=== PATIENT | female | born 1990 | race Caucasian/White ===

== ENCOUNTER 2016-11-18 18:14 | Emergency (ER) | payer OTHER ==
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
[2016-11-18 18:23] VITALS: BP 143/92; PULSE 110; TEMP 98.5; BMI 20.6
[2016-11-18] MEDS ORDERED: ACETAMINOPHEN 325 MG TABLET (FP) PO ONE (18:28)
[2016-11-18] MEDS ORDERED: DIPHTH,PERTUSS(ACELL),TET 0.5 ML DISP.SYRIN IM ONE (19:24)
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
== END 2016-11-18 21:26 | disposition home or self-care (01) ==
LOC: JERFT 18:14
DX: S01.112A Laceration without foreign body of left eyelid and periocular area, initial encounter (principal); S00.83XA Contusion of other part of head, initial encounter; Y00.XXXA Assault by blunt object, initial encounter; Y93.89 Activity, other specified; Y92.038 Other place in apartment as the place of occurrence of the external cause; Y07.9 Unspecified perpetrator of maltreatment and neglect
CPT/HCPCS: 84703; 90715; 99281-25

== ENCOUNTER 2018-08-01 09:31 | Emergency (ER) | payer OTHER ==
[2018-08-01 09:41] VITALS: BP 132/95; PULSE 104; TEMP 99.6; BMI 20.1
[2018-08-01] MEDS ORDERED: ALBUTEROL SO4 2.5/IPRATROPIUM 0.5 INH SOL 3 ML VIAL.NEB. NEB ONE ×2 (10:03→10:13)
[2018-08-01] MEDS ORDERED: LORATADINE 10 MG TABLET PO ONE (10:06)
--- NOTE | 2018-08-01 10:08 | PDOC ---
History of Present Illness - General Chief Complaint: Sore Throat Stated Complaint: COUGH/PAIN Time Seen by Provider: 08/01/18 10:02 History Source: Patient Exam Limitations: No Limitations (cough, wheezing, and sorethraot X 2 days) - History of Present Illness Associated Symptoms: reports: cough. denies: fever/chills, headaches, shortness of breath Past History - Past Medical History Allergies/Adverse Reactions: Allergies Allergy/AdvReac Type Severity Reaction Status Date / Time No Known Allergies Allergy Verified 08/01/18 09:41 Home Medications: Ambulatory Orders Albuterol Sulfate Inhaler - [Ventolin HFA Inhaler -] 2 inh PO Q6H #1 inh Benzonatate [Tessalon Pearls -] 100 mg PO TID #21 capsule 08/01/18 Ibuprofen 600 mg PO ACDIN 7 Days #21 tablet 08/01/18 COPD: No - Reproductive History (#): 0 Para: 0 Cervical CA: No Dysfunctional Uterine Bleeding: No Ectopic : No Endometrial CA: No Polycystic Ovaries: No Therapeutic (s) & number: No Tubal Ligation: No Spontaneous : 0 - Suicide/Smoking/Psychosocial Hx Smoking Status: No Smoking History: Current every day smoker Have you smoked in the past 12 months: No Number of Cigarettes Smoked Daily: 5 Information on smoking cessation initiated: No Hx Alcohol Use: No Drug/Substance Use Hx: No Substance Use Type: None Review of Systems - Review of Systems Constitutional: No: Chills, Fever HEENTM: Yes: Ear Pain, Throat Pain. No: Ear Discharge, Throat Swelling, Mouth Pain Respiratory: Yes: Cough, Productive cough. No: Shortness of Breath, SOB with Exertion, Stridor, Wheezing Cardiac (ROS): No: Chest Pain, Lightheadedness, Chest Tightness Neurological: No: Headache, Numbness, Paresthesia *Physical Exam - Vital Signs Last Vital Signs Temp Pulse Resp BP Pulse Ox 99.6 F 104 H 20 132/95 98 08/01/18 09:38 08/01/18 09:38 08/01/18 09:38 08/01/18 09:38 08/01/18 09:38 - Physical Exam General Appearance: Yes: Nourished HEENT: positive: EOMI, Normal Voice, TMs Normal, Pharyngeal Erythema, Nasal Congestion, Rhinorrhea. 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 NML intact, Fully Oriented, Alert Moderate Sedation - Procedure Monitoring Vital Signs: Procedure Monitoring Vital Signs Temperature 99.6 F 08/01/18 09:38 Pulse Rate 104 H 08/01/18 09:38 Respiratory Rate 20 08/01/18 09:38 Blood Pressure 132/95 08/01/18 09:38 O2 Sat by Pulse Oximetry (%) 98 08/01/18 09:38 ED Treatment Course - RADIOLOGY Radiology Studies Ordered: Category Date Time Status CHEST PA & LAT [RAD] Stat Radiology 08/01/18 10:03 Ordered Medical Decision Making - Medical Decision Making 08/01/18 10:07 27 years old male female current smoker presents with cough with greenish sputum on shortness of breath and sore throat for 2 days. Patient did admit to subjective fevers as well. She denies history of asthma but admitted to have her bronchitis every year at this time. No chest pain no wheezing. 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 Nebulizer treatment will be given chest x-ray to rule out pneumonia disposition pending 08/01/18 11:31 CXR no PNA pt reassess, breathing much better, clear lungs smoking cessation advised *DC/Admit/Observation/Transfer Diagnosis at time of Disposition: URI, acute - Discharge Dispostion Disposition: HOME Condition at time of disposition: Good Decision to Admit order: No - Prescriptions Prescriptions: Albuterol Sulfate Inhaler - [Ventolin HFA Inhaler -] 2 inh PO Q6H #1 inh Benzonatate [Tessalon Pearls -] 100 mg PO TID #21 capsule Ibuprofen 600 mg PO ACDIN 7 Days #21 tablet - Referrals - Patient Instructions Printed Discharge Instructions: Common Cold Additional Instructions: Chest x-ray was negative for pneumonia today. I advised you to stop smoking follow-up with her primary care doctor for further reassessment please return to the emergency room if worsening symptoms occur - Post Discharge Activity
[2018-08-01] MEDS ORDERED: LORATADINE 10 MG TABLET ONE (10:13)
[2018-08-01] MEDS ORDERED: IBUPROFEN 600 MG TABLET (FP) PO ONE ×2 (10:28→10:31)
== END 2018-08-01 11:46 | disposition home or self-care (01) ==
LOC: JERFT 09:31
PROC: 3E0F7GC Introduction of Other Therapeutic Substance into Respiratory Tract, Via Natural or Artificial Opening (ICD-10-PCS; principal; 2018-08-01)
DX: J06.9 Acute upper respiratory infection, unspecified (principal)
CPT/HCPCS: 71046-TC-FY; 87070; 87880; 94640; 99281-25